=== PATIENT | female | born 1970 | race Caucasian/White ===

== ENCOUNTER 2016-08-04 07:14 | Emergency (ER) | payer BC ==
[~2016-08-04] VITALS: Ht 167.6 cm; Wt 85.5 kg
[~2016-08-04 07:14] MED LIST: BUSPIRONE HCL15 MG PO; PERCOCET 5/31 TABLET PO; QUETIAPINE FUM300 MG PO; VENLAFAXINE HCL75 M3 PO; ZOFRAN4 MG PO
[2016-08-04 07:56] LABS: EOSINOPHIL (%) 4.5 % (0-5); EOSINOPHIL COUNT 0.2 K/uL (0-0.3); HEMATOCRIT 41.9 % (36.0-46.0); INSTRUMENT ABS NEUTROPHIL CT 2.7 K/uL; LYMPHOCYTE COUNT 1.7 K/uL (1.0-2.8); MCH 28.8 PG (29.0-34.0); MCHC 33.2 G/DL (30.0-36.0); MCV 86.7 FL (83-99); MEAN PLAT.VOLUME 11.4 uM^3 (9.5-12.4); MONOCYTE (%) 6.5 % (3-12); MONOCYTE COUNT 0.3 K/uL (0-0.8); NEUTROPHIL (%) 53.9 % (45-76); NEUTROPHIL COUNT 2.7 K/uL (1.8-6.4); PLATELET COUNT 196 K/uL (156-360); RBC DIS.WIDTH-SD 40.8 % (39-53); RED BLOOD COUNT 4.83 M/uL (3.80-5.20); WHITE BLOOD COUNT 5.1 K/uL (4.1-10.2)
[2016-08-04 08:04] LABS: CHLORIDE 109 mEq/L (99-109); POTASSIUM 3.9 mEq/L (3.7-5.4); SODIUM 139 mEq/L (136-147)
[2016-08-04 08:06] LABS: GLUCOSE 96 mg/dL (70-99)
[2016-08-04 08:07] LABS: ANION GAP 9 MEQ/L (2-14)
[2016-08-04 08:08] LABS: TOTAL BILIRUBIN 0.4 mg/dL (0.0-1.0)
[2016-08-04 08:09] LABS: ALKALINE PHOSPHATASE 63 IU/L (3-129)
[2016-08-04 08:10] LABS: GFR ESTIMATE (CALCULATED) > 59 mL/min/
[2016-08-04 08:11] LABS: UREA NITROGEN (BUN) 16 mg/dL (9-23)
[2016-08-04 08:13] LABS: LIPASE 80 U/L (1.0-51.0)
[2016-08-04 08:26] LABS: ADD MIUA? NO; BILIRUBIN NEGATIVE; BLOOD NEGATIVE; COLOR STRAW ((YELLOW)); GLUCOSE (STRIP) NEGATIVE; KETONES NEGATIVE; LEUKOCYTES NEGATIVE; NITRITE NEGATIVE; PROTEIN (STRIP) NEGATIVE; SPECIFIC GRAVITY 1.013 (1.000-1.030); UROBILINOGEN 0.2 MG/DL (0.2-1.0)
[2016-08-04] MEDS ORDERED: KLONOPIN0.5 M1 PO (09:34)
[2016-08-04] MEDS ORDERED: SEROQUEL50 MG PO (09:34)
[2016-08-04] MEDS ORDERED: BRINTELLIX20 MG PO (09:35)
[2016-08-04] MEDS ORDERED: TYLENOL WITH C1 EACH PO (10:26)
[2016-08-04 10:50] VITALS: BP 128/85
== END 2016-08-04 10:45 | disposition home or self-care (01) ==
LOC: EME 07:14
PROVIDERS: Emergency Medicine
DX: R10.11 Right upper quadrant pain (principal)
CPT/HCPCS: 74177; 80053; 81003; 83690; 85025; 99281; 99285; J1885; J2270; J2405; J7030

== ENCOUNTER → 2017-10-16 | Outpatient (CLI) | payer BC ==
[~2017-10-16] MED LIST changes: +BRINTELLIX20 MG PO; +KLONOPIN0.5 M1 PO; +SEROQUEL50 MG PO; +TYLENOL WITH C1 EACH PO
== END | disposition home or self-care (01) ==
LOC: CDC 11:12
DX: Z01.810 Encounter for preprocedural cardiovascular examination (principal); C50.512 Malignant neoplasm of lower-outer quadrant of left female breast
CPT/HCPCS: 93000

== ENCOUNTER 2017-11-02 06:56 | Day surgery (SDC) | payer BC ==
[~2017-11-02] VITALS: Ht 167.6 cm; Wt 96.2 kg
[~2017-11-02 06:56] MED LIST changes: +ALLEGRA-D 121 TABLET PO; +ERGOCALCIF50000 UNIT PO; +LOPRESSOR50 MG PO; +ULTRAM50 MG PO; +ZANAFLEX4 M1 PO
[2017-11-02] MEDS ORDERED: XANAX0.25 MG PO (07:32)
[2017-11-02] MEDS ORDERED: TYLENOL325 M2 PO (07:33)
[2017-11-02] MEDS ORDERED: TRANSDERM-SCOP1 EACH TD (07:34)
[2017-11-02 07:46] VITALS: BP 131/80
[2017-11-02 19:15] VITALS: BP 135/67
[2017-11-02 23:04] VITALS: BP 126/68
[2017-11-03 04:31] VITALS: BP 118/64
[2017-11-03 07:17] VITALS: BP 132/67
== END 2017-11-03 10:45 | disposition home or self-care (01) ==
LOC: SDC 06:56 → NUC 08:30 → 2EAST 17:16 → 2SOUTH 17:16 → ENRESERV 17:21 → 2EAST 18:57
PROC: 0HBV0ZZ Excision of Bilateral Breast, Open Approach (ICD-10-PCS; principal; 2017-11-02)
PROC: 0HHV0NZ Insertion of Tissue Expander into Bilateral Breast, Open Approach (ICD-10-PCS; principal; 2017-11-02)
PROC: 07B60ZX Excision of Left Axillary Lymphatic, Open Approach, Diagnostic (ICD-10-PCS; principal; 2017-11-02)
DX: C50.912 Malignant neoplasm of unspecified site of left female breast (principal); I10 Essential (primary) hypertension; Z80.3 Family history of malignant neoplasm of breast; F32.9 Major depressive disorder, single episode, unspecified
CPT/HCPCS: 78195; 78999; A9541; G0378; J0131; J0690; J1170; J2250; J2405; J2765; J3010; S0020